=== PATIENT | female | born 1970 | race Caucasian/White ===

== ENCOUNTER 2023-11-14 15:32 | Emergency (ER) | payer OTHER, BC ==
[2023-11-14 15:51] LABS: APPEARANCE,URINE CLOUDY (CLEAR); BILIRUBIN,URINE NEGATIVE (NEGATIVE); GLUCOSE,URINE NEGATIVE (NEGATIVE); KETONES,URINE NEGATIVE (NEGATIVE); LEUKOCYTE ESTERASE,URINE LARGE (NEGATIVE); NITRITE,URINE NEGATIVE (NEGATIVE); OCCULT BLOOD,URINE LARGE (NEGATIVE); PROTEIN,URINE TRACE mg/dL (NEGATIVE); UROBILINOGEN,URINE 0.2 EU/dL (0.2-1.0)
[2023-11-14 16:09] LABS: COLOR,URINE OTHER (YELLOW)
[2023-11-14 16:16] LABS: AMORPHOUS SEDIMENT,URINE NOT SEEN; BACTERIA,URINE MODERATE; EPITHELIAL CELLS,URINE FEW; MUCUS,URINE RARE; WBC,URINE 40-50 (0-5)
== END 2023-11-14 16:48 | disposition home or self-care (01) ==
LOC: JP.ED 15:32
DX: N30.01 Acute cystitis with hematuria (principal); Z90.49 Acquired absence of other specified parts of digestive tract; Z88.2 Allergy status to sulfonamides
CPT/HCPCS: 81001; 87086; 87088; 87186; 99283